=== PATIENT | male | born 1955 | race Hispanic/Latino ===

== ENCOUNTER 2020-10-03 17:31 | Inpatient (IN) | payer MEDICARE ==
[~2020-10-03] VITALS: Ht 182.9 cm; Wt 83.5 kg
[2020-10-03] MEDS ORDERED: Vancomycin IV 1 GM in SODIUM CHLORIDE 0.9% 250ML 250 ML IV STA (18:32)
[2020-10-03] MEDS ORDERED: CEFEPIME 2 GM in SODIUM CHLORIDE 0.9% 100 ML IV STA (18:32)
[2020-10-03 18:47] LABS: BASOPHILS % 0.3 % (0.0-1.0); EOSINOPHILS # (AUTO) 0.1 (0.0-0.4); EOSINOPHILS % 1.4 % (0.0-6.0); HEMATOCRIT 31.1 % (38.2-49.6); HEMOGLOBIN 10.1 g/dL (14.0-18.0); LYMPHOCYTES # (AUTO) 0.9 (1.0-3.2); LYMPHOCYTES % 11.7 % (18.0-39.1); MEAN CORPUSCULAR HEMOGLOBIN 30.5 pg (28-32); MEAN CORPUSCULAR HGB CONC 32.5 g/dL (31-35); MONOCYTES # (AUTO) 0.6 (0.2-0.8); MONOCYTES % 8.3 % (4.4-11.3); NEUTROPHILS # (AUTO) 5.7 (2.1-6.9); PLATELET COUNT 249 x10e3/uL (140-360); RED BLOOD COUNT 3.31 x10e6/uL (4.3-5.7); RED CELL DISTRIBUTION WIDTH 14.7 % (11.7-14.4)
[2020-10-03 19:03] LABS: ALBUMIN 2.9 g/dL (3.5-5.0); ALBUMIN/GLOBULIN RATIO 0.7 (0.8-2.0); ANION GAP 12.8 mmol/L (8-16); CALCIUM 8.1 mg/dL (8.4-10.2); CREATININE, SERUM 0.82 mg/dL (0.72-1.25); POTASSIUM 4.8 mmol/L (3.5-5.1)
[2020-10-03] MEDS ORDERED: SODIUM CHLORIDE 0.9% 250ML 250 ML ONE (19:39)
[2020-10-04] MEDS ORDERED: HYDRALAZINE HCL 20 MG/ML VIAL IV PRN (02:30)
[2020-10-04] MEDS ORDERED: ONDANSETRON HCL INJ 2MG/ML 2ML 2 MG/ML VIAL IV PRN (02:30)
[2020-10-04] MEDS ORDERED: DEXTROSE 50% SYRINGE 50 ML IV PRN (02:30)
[2020-10-04] MEDS ORDERED: MAGNESIUM HYDROXIDE 30 ML UDC PO PRN (02:45)
[2020-10-04] MEDS ORDERED: MORPHINE SULFATE INJ 4 MG/ML INJ 1ML ONE (03:00)
[2020-10-04] MEDS ORDERED: ONDANSETRON HCL INJ 2MG/ML 2ML 2 MG/ML VIAL IV STA (03:14)
[2020-10-04] MEDS ORDERED: MORPHINE SULFATE INJ 4 MG/ML INJ 1ML IV PRN (03:15)
[2020-10-04] MEDS: CEFEPIME 1 GM in SODIUM CHLORIDE 0.9% 50ML 50 ML IV SCH ×3 (06:22→22:14)
[2020-10-04 06:57] LABS: BASOPHILS % 0.6 % (0.0-1.0); EOSINOPHILS # (AUTO) 0.2 (0.0-0.4); EOSINOPHILS % 2.4 % (0.0-6.0); HEMATOCRIT 32.9 % (38.2-49.6); HEMOGLOBIN 10.6 g/dL (14.0-18.0); LYMPHOCYTES # (AUTO) 1.1 (1.0-3.2); LYMPHOCYTES % 16.4 % (18.0-39.1); MEAN CORPUSCULAR HEMOGLOBIN 30.4 pg (28-32); MEAN CORPUSCULAR HGB CONC 32.2 g/dL (31-35); MEAN CORPUSCULAR VOLUME 94.3 fL (81-99); MONOCYTES # (AUTO) 0.6 (0.2-0.8); MONOCYTES % 8.4 % (4.4-11.3); NEUTROPHILS # (AUTO) 4.8 (2.1-6.9); NEUTROPHILS % 71.7 % (38.7-80.0); PLATELET COUNT 273 x10e3/uL (140-360); RED BLOOD COUNT 3.49 x10e6/uL (4.3-5.7); RED CELL DISTRIBUTION WIDTH 14.8 % (11.7-14.4)
[2020-10-04] MEDS ORDERED: VANCOMYCIN HCL 1GM/NS 250 ML BAG IV SCH (07:00)
[2020-10-04] MEDS ORDERED: Vancomycin IV 1 GM in SODIUM CHLORIDE 0.9% 250ML 250 ML IV SCH (07:00)
[2020-10-04 07:20] LABS: ALBUMIN 2.8 g/dL (3.5-5.0); ALBUMIN/GLOBULIN RATIO 0.7 (0.8-2.0); CALCIUM 8.3 mg/dL (8.4-10.2); CREATININE, SERUM 0.7 mg/dL (0.72-1.25)
[2020-10-04] MEDS: INSULIN REGULAR, HUMAN 100 UNIT/1 ML SQ SCH ×4 (07:30→20:41)
[2020-10-04] MEDS: MULTIVITAMINS/MINERALS TAB PO SCH (10:57)
[2020-10-04] MEDS: ENOXAPARIN SOD INJ 40 MG/0.4 ML SYR SC SCH (12:04)
[2020-10-04] MEDS: ACETAMINOPHEN/CODEINE 300MG - 30MG TAB PO PRN ×2 (14:34→20:30)
[2020-10-04 15:12] VITALS: BP 170/71
[2020-10-04 20:00] VITALS: BP 172/71
[2020-10-04 20:12] VITALS: BP 172/71
[2020-10-04] MEDS ORDERED: SODIUM CHLORIDE 0.9% 250ML 250 ML ONE (20:36)
[2020-10-04] MEDS: POVIDONE IODINE 30 GM TUBE TOP SCH (20:41)
[2020-10-04] MEDS: MUPIROCIN 2% OINT 22 GM TUBE TOP SCH (20:41)
[2020-10-04] MEDS ORDERED: NOVOLOG100 UNIT/1 SC (20:46)
[2020-10-04] MEDS ORDERED: POTASSIUM CHLO10 ME1 PO (20:46)
[2020-10-04] MEDS ORDERED: GABAPENTIN400 MG PO (20:46)
[2020-10-04] MEDS ORDERED: POTASSIUM CITR10 MEQ PO (20:46)
[2020-10-04] MEDS ORDERED: FLUOXETINE HCL20 MG PO (20:46)
[2020-10-04] MEDS ORDERED: FUROSEMIDE20 MG PO (20:46)
[2020-10-04] MEDS ORDERED: K-DUR10 MEQ PO (20:46)
[2020-10-04 21:00] VITALS: BP 172/71
[2020-10-04] MEDS: GABAPENTIN 400 MG CAP PO SCH (22:14)
[2020-10-04] MEDS ORDERED: LISINOPRIL10 MG PO (22:16)
[2020-10-04] MEDS: Vancomycin IV 1 GM in SODIUM CHLORIDE 0.9% 250ML 250 ML IV SCH (22:43)
[2020-10-05] VITALS (7 sets, daily range): BP systolic 132–158; BP diastolic 66–79
[2020-10-05] MEDS: HYDROCODONE/APAP 5MG-325MG TAB PO PRN ×3 (06:35→21:13)
[2020-10-05] MEDS: CEFEPIME 1 GM in SODIUM CHLORIDE 0.9% 50ML 50 ML IV SCH ×3 (06:35→22:50)
[2020-10-05] MEDS: INSULIN REGULAR, HUMAN 100 UNIT/1 ML SQ SCH ×4 (07:30→21:00)
[2020-10-05] MEDS ORDERED: LISINOPRIL 10 MG TAB PO SCH (09:00)
[2020-10-05] MEDS: MULTIVITAMINS/MINERALS TAB PO SCH (09:18)
[2020-10-05] MEDS: MUPIROCIN 2% OINT 22 GM TUBE TOP SCH (09:18)
[2020-10-05] MEDS: GABAPENTIN 400 MG CAP PO SCH ×3 (09:18→21:00)
[2020-10-05] MEDS: POVIDONE IODINE 30 GM TUBE TOP SCH (09:18)
[2020-10-05] MEDS: AMLODIPINE BESYLATE 5 MG TAB PO SCH (09:18)
[2020-10-05] MEDS: FLUOXETINE HCL 20 MG CAP PO SCH (09:18)
[2020-10-05] MEDS: Vancomycin IV 1 GM in SODIUM CHLORIDE 0.9% 250ML 250 ML IV SCH ×2 (13:01→23:24)
[2020-10-05] MEDS: ENOXAPARIN SOD INJ 40 MG/0.4 ML SYR SC SCH (17:08)
[2020-10-05] MEDS ORDERED: POTASSIUM CHLORIDE 20 MEQ TAB CR PO STA (20:11)
[2020-10-05] MEDS: FUROSEMIDE INJ 10 MG/ML 4 ML VIAL IV SCH (21:00)
[2020-10-06] VITALS (8 sets, daily range): BP systolic 108–163; BP diastolic 56–73
[2020-10-06] MEDS: HYDROCODONE/APAP 5MG-325MG TAB PO PRN ×3 (04:54→18:18)
[2020-10-06] MEDS: CEFEPIME 1 GM in SODIUM CHLORIDE 0.9% 50ML 50 ML IV SCH ×3 (06:13→22:05)
[2020-10-06] MEDS: FUROSEMIDE INJ 10 MG/ML 4 ML VIAL IV SCH ×2 (09:04→21:33)
[2020-10-06] MEDS: AMLODIPINE BESYLATE 5 MG TAB PO SCH (09:05)
[2020-10-06] MEDS: GABAPENTIN 400 MG CAP PO SCH ×3 (09:05→21:22)
[2020-10-06] MEDS: MULTIVITAMINS/MINERALS TAB PO SCH (09:05)
[2020-10-06] MEDS: FLUOXETINE HCL 20 MG CAP PO SCH (09:06)
[2020-10-06] MEDS: MUPIROCIN 2% OINT 22 GM TUBE TOP SCH (09:06)
[2020-10-06] MEDS: LISINOPRIL 10 MG TAB PO SCH (09:06)
[2020-10-06] MEDS: POVIDONE IODINE 30 GM TUBE TOP SCH (09:06)
[2020-10-06] MEDS: INSULIN REGULAR, HUMAN 100 UNIT/1 ML SQ SCH ×4 (11:30→21:00)
[2020-10-06] MEDS: Vancomycin IV 1 GM in SODIUM CHLORIDE 0.9% 250ML 250 ML IV SCH ×2 (12:08→23:00)
[2020-10-06] MEDS: ENOXAPARIN SOD INJ 40 MG/0.4 ML SYR SC SCH (16:47)
[2020-10-07] VITALS (8 sets, daily range): BP systolic 141–164; BP diastolic 61–78
[2020-10-07 05:23] LABS: EOSINOPHILS # (AUTO) 0.1 (0.0-0.4); EOSINOPHILS % 2.8 % (0.0-6.0); HEMATOCRIT 30.5 % (38.2-49.6); HEMOGLOBIN 10.2 g/dL (14.0-18.0); LYMPHOCYTES # (AUTO) 0.8 (1.0-3.2); LYMPHOCYTES % 20.7 % (18.0-39.1); MEAN CORPUSCULAR HEMOGLOBIN 30.7 pg (28-32); MEAN CORPUSCULAR HGB CONC 33.4 g/dL (31-35); MEAN CORPUSCULAR VOLUME 91.9 fL (81-99); MONOCYTES # (AUTO) 0.5 (0.2-0.8); MONOCYTES % 12.4 % (4.4-11.3); NEUTROPHILS # (AUTO) 2.4 (2.1-6.9); NEUTROPHILS % 62.8 % (38.7-80.0); PLATELET COUNT 279 x10e3/uL (140-360); RED BLOOD COUNT 3.32 x10e6/uL (4.3-5.7); RED CELL DISTRIBUTION WIDTH 14.4 % (11.7-14.4)
[2020-10-07 05:47] LABS: ALBUMIN 2.5 g/dL (3.5-5.0); ALBUMIN/GLOBULIN RATIO 0.7 (0.8-2.0); ANION GAP 13.6 mmol/L (8-16); CALCIUM 8.5 mg/dL (8.4-10.2); CHOL/HDL RATIO 3.4 (3.9-4.7); CREATININE, SERUM 0.8 mg/dL (0.72-1.25); MAGNESIUM 1.6 MG/DL (1.3-2.1); POTASSIUM 3.6 mmol/L (3.5-5.1)
[2020-10-07] MEDS: CEFEPIME 1 GM in SODIUM CHLORIDE 0.9% 50ML 50 ML IV SCH ×3 (06:24→22:06)
[2020-10-07] MEDS: INSULIN REGULAR, HUMAN 100 UNIT/1 ML SQ SCH ×4 (07:30→22:05)
[2020-10-07] MEDS: FLUOXETINE HCL 20 MG CAP PO SCH (09:00)
[2020-10-07] MEDS: AMLODIPINE BESYLATE 5 MG TAB PO SCH (09:00)
[2020-10-07] MEDS: POVIDONE IODINE 30 GM TUBE TOP SCH (09:00)
[2020-10-07] MEDS: LISINOPRIL 10 MG TAB PO SCH (09:00)
[2020-10-07] MEDS: MULTIVITAMINS/MINERALS TAB PO SCH (09:00)
[2020-10-07] MEDS: GABAPENTIN 400 MG CAP PO SCH ×3 (09:00→22:04)
[2020-10-07] MEDS: MUPIROCIN 2% OINT 22 GM TUBE TOP SCH (09:00)
[2020-10-07] MEDS: FUROSEMIDE INJ 10 MG/ML 4 ML VIAL IV SCH ×2 (09:00→22:04)
[2020-10-07] MEDS: Vancomycin IV 1 GM in SODIUM CHLORIDE 0.9% 250ML 250 ML IV SCH ×2 (11:10→23:08)
[2020-10-07] MEDS ORDERED: HEPARIN SOD (PORCINE) 1000 UNIT/ML 30ML ONE ×2 (14:58→15:47)
[2020-10-07] MEDS ORDERED: MIDAZOLAM HCL 2 MG/2 ML VIAL ONE ×2 (14:58→16:11)
[2020-10-07] MEDS ORDERED: FENTANYL CITRATE/PF 100MCG/2 ML INJ ONE (14:58)
[2020-10-07] MEDS ORDERED: IOPAMIDOL 300MG/ML 100 ML INFUS..BTL IV ONE (14:59)
[2020-10-07] MEDS ORDERED: LIDOCAINE HCL 2% LOCAL 20 ML VIAL ONE (14:59)
[2020-10-07] MEDS ORDERED: HEPARIN SOD/SOD CHLORIDE 2,000 ML ONE (14:59)
[2020-10-07] MEDS ORDERED: NITROGLYCERIN/D5W 200 MCG/ML 250 ML ONE (14:59)
[2020-10-07] MEDS ORDERED: SODIUM CHLORIDE 0.9% 1000ML 1,000 ML ONE ×2 (14:59→15:47)
[2020-10-07] MEDS ORDERED: VERAPAMIL HCL 2.5 MG/ML 2 ML VIAL ONE (15:47)
[2020-10-07] MEDS ORDERED: ASPIRIN 325 MG TAB ONE (16:02)
[2020-10-07] MEDS ORDERED: CLOPIDOGREL BISULFATE 75 MG TAB ONE (16:02)
[2020-10-07] MEDS: ENOXAPARIN SOD INJ 40 MG/0.4 ML SYR SC SCH (17:00)
[2020-10-07] MEDS: HYDROCODONE/APAP 5MG-325MG TAB PO PRN (18:10)
[2020-10-07] MEDS: ACETAMINOPHEN 325 MG TAB PO PRN (22:20)
[2020-10-08 04:00] VITALS: BP 140/66
[2020-10-08] MEDS: CEFEPIME 1 GM in SODIUM CHLORIDE 0.9% 50ML 50 ML IV SCH ×3 (05:38→21:08)
[2020-10-08] MEDS: HYDROCODONE/APAP 5MG-325MG TAB PO PRN ×4 (05:45→23:54)
[2020-10-08] MEDS: INSULIN REGULAR, HUMAN 100 UNIT/1 ML SQ SCH ×4 (07:30→21:06)
[2020-10-08 08:51] VITALS: BP 146/65
[2020-10-08] MEDS: LISINOPRIL 10 MG TAB PO SCH (09:00)
[2020-10-08] MEDS: GABAPENTIN 400 MG CAP PO SCH ×3 (09:00→21:08)
[2020-10-08] MEDS: AMLODIPINE BESYLATE 5 MG TAB PO SCH (09:00)
[2020-10-08] MEDS: FUROSEMIDE INJ 10 MG/ML 4 ML VIAL IV SCH ×2 (09:00→21:07)
[2020-10-08] MEDS: FLUOXETINE HCL 20 MG CAP PO SCH (09:00)
[2020-10-08] MEDS: MULTIVITAMINS/MINERALS TAB PO SCH (09:00)
[2020-10-08] MEDS: Vancomycin IV 1 GM in SODIUM CHLORIDE 0.9% 250ML 250 ML IV SCH ×2 (11:00→23:46)
[2020-10-08] MEDS: POVIDONE IODINE 30 GM TUBE TOP SCH (12:00)
[2020-10-08] MEDS: MUPIROCIN 2% OINT 22 GM TUBE TOP SCH (12:00)
[2020-10-08 12:54] LABS: BASOPHILS % 0.8 % (0.0-1.0); EOSINOPHILS # (AUTO) 0.1 (0.0-0.4); EOSINOPHILS % 1.6 % (0.0-6.0); HEMATOCRIT 31.9 % (38.2-49.6); HEMOGLOBIN 10.5 g/dL (14.0-18.0); LYMPHOCYTES # (AUTO) 0.8 (1.0-3.2); LYMPHOCYTES % 14.9 % (18.0-39.1); MEAN CORPUSCULAR HEMOGLOBIN 30.5 pg (28-32); MEAN CORPUSCULAR HGB CONC 32.9 g/dL (31-35); MEAN CORPUSCULAR VOLUME 92.7 fL (81-99); MONOCYTES # (AUTO) 0.4 (0.2-0.8); MONOCYTES % 8.2 % (4.4-11.3); NEUTROPHILS # (AUTO) 3.7 (2.1-6.9); NEUTROPHILS % 74.1 % (38.7-80.0); PLATELET COUNT 305 x10e3/uL (140-360); RED BLOOD COUNT 3.44 x10e6/uL (4.3-5.7); RED CELL DISTRIBUTION WIDTH 14.6 % (11.7-14.4)
[2020-10-08 13:10] LABS: ANION GAP 12.8 mmol/L (8-16); CALCIUM 8.6 mg/dL (8.4-10.2); CREATININE, SERUM 0.81 mg/dL (0.72-1.25); POTASSIUM 3.8 mmol/L (3.5-5.1)
[2020-10-08 16:14] VITALS: BP 127/59
[2020-10-08] MEDS: ASPIRIN 81 MG CHEW TAB PO SCH (17:00)
[2020-10-08] MEDS: ENOXAPARIN SOD INJ 40 MG/0.4 ML SYR SC SCH (17:21)
[2020-10-08] MEDS: CLOPIDOGREL BISULFATE 75 MG TAB PO SCH (18:05)
[2020-10-08 20:00] VITALS: BP 145/70
[2020-10-08 21:00] VITALS: BP 145/70
[2020-10-08] MEDS: ATORVASTATIN 20 MG TAB PO SCH (21:08)
[2020-10-09] VITALS (9 sets, daily range): BP systolic 101–145; BP diastolic 57–72
[2020-10-09] MEDS: CEFEPIME 1 GM in SODIUM CHLORIDE 0.9% 50ML 50 ML IV SCH ×3 (06:34→22:15)
[2020-10-09] MEDS: FUROSEMIDE INJ 10 MG/ML 4 ML VIAL IV SCH ×2 (09:28→20:40)
[2020-10-09] MEDS: MULTIVITAMINS/MINERALS TAB PO SCH (09:28)
[2020-10-09] MEDS: ASPIRIN 81 MG CHEW TAB PO SCH (09:28)
[2020-10-09] MEDS: AMLODIPINE BESYLATE 5 MG TAB PO SCH (09:29)
[2020-10-09] MEDS: CLOPIDOGREL BISULFATE 75 MG TAB PO SCH (09:29)
[2020-10-09] MEDS: GABAPENTIN 400 MG CAP PO SCH ×3 (09:29→20:40)
[2020-10-09] MEDS: MUPIROCIN 2% OINT 22 GM TUBE TOP SCH (09:30)
[2020-10-09] MEDS: FLUOXETINE HCL 20 MG CAP PO SCH (09:30)
[2020-10-09] MEDS: LISINOPRIL 10 MG TAB PO SCH (09:30)
[2020-10-09] MEDS: POVIDONE IODINE 30 GM TUBE TOP SCH (09:31)
[2020-10-09] MEDS: HYDROCODONE/APAP 5MG-325MG TAB PO PRN ×3 (09:31→20:40)
[2020-10-09] MEDS: Vancomycin IV 1 GM in SODIUM CHLORIDE 0.9% 250ML 250 ML IV SCH ×2 (10:49→23:35)
[2020-10-09] MEDS: INSULIN REGULAR, HUMAN 100 UNIT/1 ML SQ SCH ×4 (10:57→20:40)
[2020-10-09] MEDS: ENOXAPARIN SOD INJ 40 MG/0.4 ML SYR SC SCH (17:09)
[2020-10-09] MEDS: ATORVASTATIN 20 MG TAB PO SCH (20:40)
[2020-10-10] VITALS (9 sets, daily range): BP systolic 108–153; BP diastolic 56–72
[2020-10-10] MEDS: CEFEPIME 1 GM in SODIUM CHLORIDE 0.9% 50ML 50 ML IV SCH ×3 (05:35→21:05)
[2020-10-10] MEDS: MULTIVITAMINS/MINERALS TAB PO SCH (08:55)
[2020-10-10] MEDS: FUROSEMIDE INJ 10 MG/ML 4 ML VIAL IV SCH (08:55)
[2020-10-10] MEDS: GABAPENTIN 400 MG CAP PO SCH ×3 (08:55→21:05)
[2020-10-10] MEDS: ASPIRIN 81 MG CHEW TAB PO SCH (08:55)
[2020-10-10] MEDS: CLOPIDOGREL BISULFATE 75 MG TAB PO SCH (08:55)
[2020-10-10] MEDS: FLUOXETINE HCL 20 MG CAP PO SCH (08:56)
[2020-10-10] MEDS: POVIDONE IODINE 30 GM TUBE TOP SCH (08:56)
[2020-10-10] MEDS: LISINOPRIL 10 MG TAB PO SCH (08:56)
[2020-10-10] MEDS: MUPIROCIN 2% OINT 22 GM TUBE TOP SCH (08:57)
[2020-10-10] MEDS: AMLODIPINE BESYLATE 5 MG TAB PO SCH (08:59)
[2020-10-10] MEDS: INSULIN REGULAR, HUMAN 100 UNIT/1 ML SQ SCH ×4 (09:03→21:05)
[2020-10-10] MEDS: HYDROCODONE/APAP 5MG-325MG TAB PO PRN ×2 (09:06→22:39)
[2020-10-10] MEDS ORDERED: AMLODIPINE BESYLATE 5 MG TAB PO ONE (10:45)
[2020-10-10] MEDS: Vancomycin IV 1 GM in SODIUM CHLORIDE 0.9% 250ML 250 ML IV SCH ×2 (10:59→22:07)
[2020-10-10] MEDS: ENOXAPARIN SOD INJ 40 MG/0.4 ML SYR SC SCH (17:31)
[2020-10-10 18:50] LABS: BASOPHILS # (AUTO) 0.1 (0.0-0.1); BASOPHILS % 1.1 % (0.0-1.0); EOSINOPHILS # (AUTO) 0.2 (0.0-0.4); EOSINOPHILS % 2.5 % (0.0-6.0); HEMATOCRIT 30.2 % (38.2-49.6); HEMOGLOBIN 9.8 g/dL (14.0-18.0); LYMPHOCYTES % 15.8 % (18.0-39.1); MEAN CORPUSCULAR HEMOGLOBIN 30.6 pg (28-32); MEAN CORPUSCULAR HGB CONC 32.5 g/dL (31-35); MEAN CORPUSCULAR VOLUME 94.4 fL (81-99); MONOCYTES # (AUTO) 0.6 (0.2-0.8); MONOCYTES % 9.1 % (4.4-11.3); NEUTROPHILS # (AUTO) 4.6 (2.1-6.9); NEUTROPHILS % 71.2 % (38.7-80.0); PLATELET COUNT 246 x10e3/uL (140-360); RED CELL DISTRIBUTION WIDTH 14.5 % (11.7-14.4)
[2020-10-10 19:10] LABS: ANION GAP 13.6 mmol/L (8-16); CALCIUM 8.4 mg/dL (8.4-10.2); CREATININE, SERUM 1.03 mg/dL (0.72-1.25); POTASSIUM 3.6 mmol/L (3.5-5.1)
[2020-10-10 19:15] LABS: ALBUMIN/GLOBULIN RATIO 0.9 (0.8-2.0)
[2020-10-10 19:22] LABS: MAGNESIUM 1.6 MG/DL (1.3-2.1); PHOSPHORUS 2.5 MG/DL (2.3-4.7)
[2020-10-10] MEDS: ATORVASTATIN 20 MG TAB PO SCH (21:05)
[2020-10-11] VITALS (9 sets, daily range): BP systolic 129–145; BP diastolic 53–72
[2020-10-11] MEDS: CEFEPIME 1 GM in SODIUM CHLORIDE 0.9% 50ML 50 ML IV SCH ×3 (05:36→21:39)
[2020-10-11] MEDS: HYDROCODONE/APAP 5MG-325MG TAB PO PRN ×3 (09:00→17:05)
[2020-10-11] MEDS: ASPIRIN 81 MG CHEW TAB PO SCH (09:15)
[2020-10-11] MEDS: AMLODIPINE BESYLATE 10 MG TAB PO SCH (09:16)
[2020-10-11] MEDS: FUROSEMIDE 20 MG TAB PO SCH (09:16)
[2020-10-11] MEDS: GABAPENTIN 400 MG CAP PO SCH ×3 (09:16→20:45)
[2020-10-11] MEDS: MULTIVITAMINS/MINERALS TAB PO SCH (09:16)
[2020-10-11] MEDS: CLOPIDOGREL BISULFATE 75 MG TAB PO SCH (09:17)
[2020-10-11] MEDS: MUPIROCIN 2% OINT 22 GM TUBE TOP SCH (09:17)
[2020-10-11] MEDS: LISINOPRIL 10 MG TAB PO SCH (09:17)
[2020-10-11] MEDS: POVIDONE IODINE 30 GM TUBE TOP SCH (09:17)
[2020-10-11] MEDS: FLUOXETINE HCL 20 MG CAP PO SCH (09:17)
[2020-10-11] MEDS: INSULIN REGULAR, HUMAN 100 UNIT/1 ML SQ SCH ×4 (09:20→20:45)
[2020-10-11] MEDS: Vancomycin IV 1 GM in SODIUM CHLORIDE 0.9% 250ML 250 ML IV SCH (11:52)
[2020-10-11] MEDS: ATORVASTATIN 20 MG TAB PO SCH (20:45)
[2020-10-11] MEDS: ACETAMINOPHEN 325 MG TAB PO PRN (23:08)
[2020-10-12] VITALS (9 sets, daily range): BP systolic 121–155; BP diastolic 54–76
[2020-10-12] MEDS: CEFEPIME 1 GM in SODIUM CHLORIDE 0.9% 50ML 50 ML IV SCH ×3 (05:20→22:25)
[2020-10-12] MEDS: HYDROCODONE/APAP 5MG-325MG TAB PO PRN ×2 (05:43→20:23)
[2020-10-12] MEDS: FLUOXETINE HCL 20 MG CAP PO SCH (09:27)
[2020-10-12] MEDS: FUROSEMIDE 20 MG TAB PO SCH (09:28)
[2020-10-12] MEDS: CLOPIDOGREL BISULFATE 75 MG TAB PO SCH (09:28)
[2020-10-12] MEDS: GABAPENTIN 400 MG CAP PO SCH ×3 (09:28→20:43)
[2020-10-12] MEDS: LISINOPRIL 10 MG TAB PO SCH (09:28)
[2020-10-12] MEDS: AMLODIPINE BESYLATE 10 MG TAB PO SCH (09:28)
[2020-10-12] MEDS: MULTIVITAMINS/MINERALS TAB PO SCH (09:28)
[2020-10-12] MEDS: ASPIRIN 81 MG CHEW TAB PO SCH (09:28)
[2020-10-12] MEDS: POVIDONE IODINE 30 GM TUBE TOP SCH (09:28)
[2020-10-12] MEDS: INSULIN REGULAR, HUMAN 100 UNIT/1 ML SQ SCH ×4 (09:34→20:43)
[2020-10-12 11:59] LABS: INR 1.04; PROTHROMBIN TIME 13.8 seconds (11.9-14.5)
[2020-10-12 12:01] LABS: PARTIAL THROMBOPLASTIN TIME 56.6 seconds (23.8-35.5)
[2020-10-12] MEDS: ATORVASTATIN 20 MG TAB PO SCH (20:43)
[2020-10-12] MEDS ORDERED: SODIUM CHLORIDE 0.9% 250ML 250 ML ONE (22:29)
[2020-10-13 00:05] VITALS: BP 129/73
[2020-10-13] MEDS: HYDROCODONE/APAP 5MG-325MG TAB PO PRN ×3 (02:57→14:15)
[2020-10-13 04:00] VITALS: BP 117/58
[2020-10-13] MEDS: CEFEPIME 1 GM in SODIUM CHLORIDE 0.9% 50ML 50 ML IV SCH ×2 (06:35→14:11)
[2020-10-13] MEDS: INSULIN REGULAR, HUMAN 100 UNIT/1 ML SQ SCH ×3 (07:30→16:30)
[2020-10-13 08:00] VITALS: BP 128/53
[2020-10-13 08:39] VITALS: BP 128/53
[2020-10-13] MEDS: GABAPENTIN 400 MG CAP PO SCH ×2 (08:49→15:00)
[2020-10-13] MEDS: CLOPIDOGREL BISULFATE 75 MG TAB PO SCH (08:49)
[2020-10-13] MEDS: FUROSEMIDE 20 MG TAB PO SCH (08:49)
[2020-10-13] MEDS: AMLODIPINE BESYLATE 10 MG TAB PO SCH (08:49)
[2020-10-13] MEDS: ASPIRIN 81 MG CHEW TAB PO SCH (08:49)
[2020-10-13] MEDS: MULTIVITAMINS/MINERALS TAB PO SCH (08:49)
[2020-10-13] MEDS: LISINOPRIL 10 MG TAB PO SCH (08:50)
[2020-10-13] MEDS: FLUOXETINE HCL 20 MG CAP PO SCH (08:50)
[2020-10-13] MEDS: POVIDONE IODINE 30 GM TUBE TOP SCH (08:51)
[2020-10-13 12:00] VITALS: BP 140/64
[2020-10-13] MEDS ORDERED: ASPIRIN CHEW81 MG PO (14:43)
[2020-10-13] MEDS ORDERED: PLAVIX75 MG PO (14:43)
[2020-10-13] MEDS ORDERED: NORVASC10 MG PO (14:43)
[2020-10-13] MEDS ORDERED: LISINOPRIL10 MG PO (14:43)
[2020-10-13] MEDS ORDERED: DOXYCYCLINE HY100 MG PO (14:46)
[2020-10-13 16:00] VITALS: BP 114/69
[2020-10-13] MEDS ORDERED: ONDANSETRON HCL 4 MG ORAL DISINTEGRATING TAB PO PRN (16:00)
[2020-10-13] MEDS ORDERED: MUPIROCIN 2% OINT 22 GM TUBE TOP ONE (16:15)
== END 2020-10-13 18:17 | disposition home or self-care (01) | DRG 270 ==
LOC: ER 18:31 → ERHOLD 18:46 → MED/SURG3 10-04 14:59
PROVIDERS: ADMIT Internal Medicine; ATTEND Internal Medicine
PROC: 047M3ZZ Dilation of Right Popliteal Artery, Percutaneous Approach (ICD-10-PCS; principal; 2020-10-07)
PROC: 04CM3ZZ Extirpation of Matter from Right Popliteal Artery, Percutaneous Approach (ICD-10-PCS; 2020-10-07)
PROC: 047Q341 Dilation of Left Anterior Tibial Artery with Drug-eluting Intraluminal Device, using Drug-Coated Balloon, Percutaneous Approach (ICD-10-PCS; 2020-10-07)
PROC: 04CQ3ZZ Extirpation of Matter from Left Anterior Tibial Artery, Percutaneous Approach (ICD-10-PCS; 2020-10-07)
DX: E11.51 Type 2 diabetes mellitus with diabetic peripheral angiopathy without gangrene (principal); J18.9 Pneumonia, unspecified organism; D66 Hereditary factor VIII deficiency; I63.9 Cerebral infarction, unspecified; M62.82 Rhabdomyolysis; E87.1 Hypo-osmolality and hyponatremia; L03.116 Cellulitis of left lower limb; E11.621 Type 2 diabetes mellitus with foot ulcer; I70.223 Atherosclerosis of native arteries of extremities with rest pain, bilateral legs; E88.09 Other disorders of plasma-protein metabolism, not elsewhere classified; E83.51 Hypocalcemia; Z87.891 Personal history of nicotine dependence; E11.42 Type 2 diabetes mellitus with diabetic polyneuropathy; Z20.822 Contact with and (suspected) exposure to COVID-19; E11.9 Type 2 diabetes mellitus without complications; G89.4 Chronic pain syndrome
CPT/HCPCS: 36247; 36415; 37229; 37246; 71045; 75625; 75716; 80048; 80053; 80061; 80202; 82550; 82553; 82948; 83036; 83605; 83735; 83880; 84100; 84484; 85025; 85240; 85347; 85384; 85610; 85651; 85730; 92928; 93005; 93306; 93925; 93971; 96361; 96372; 97139; 99152; 99153; 99251; 99284; C1724; C1725; C1760; C1769; C1874; C1887; J0692; J1644; J1650; J1817; J1940; J2001; J2250; J2270; J2405; J3010; J3370; J7030; J7050; J7799; Q9967; U0002

== ENCOUNTER 2020-12-07 11:33 | Emergency (ER) | payer MEDICARE ==
[~2020-12-07] VITALS: Ht 182.9 cm; Wt 88.9 kg
[~2020-12-07 11:33] MED LIST: ASPIRIN CHEW81 MG PO; DOXYCYCLINE HY100 MG PO; FLUOXETINE HCL20 MG PO; FUROSEMIDE20 MG PO; GABAPENTIN400 MG PO; K-DUR10 MEQ PO; LISINOPRIL10 MG PO; NORVASC10 MG PO; NOVOLOG100 UNIT/1 SC; PLAVIX75 MG PO; POTASSIUM CHLO10 ME1 PO; POTASSIUM CITR10 MEQ PO
[2020-12-07 12:56] LABS: BASOPHILS % 0.5 % (0.0-1.0); EOSINOPHILS # (AUTO) 0.1 (0.0-0.4); EOSINOPHILS % 1.1 % (0.0-6.0); HEMATOCRIT 21.1 % (38.2-49.6); LYMPHOCYTES # (AUTO) 0.6 (1.0-3.2); LYMPHOCYTES % 11.2 % (18.0-39.1); MEAN CORPUSCULAR HEMOGLOBIN 29.6 pg (28-32); MEAN CORPUSCULAR HGB CONC 31.3 g/dL (31-35); MEAN CORPUSCULAR VOLUME 94.6 fL (81-99); MONOCYTES # (AUTO) 0.3 (0.2-0.8); MONOCYTES % 4.9 % (4.4-11.3); NEUTROPHILS # (AUTO) 4.6 (2.1-6.9); NEUTROPHILS % 82.1 % (38.7-80.0); PLATELET COUNT 180 x10e3/uL (140-360); RED BLOOD COUNT 2.23 x10e6/uL (4.3-5.7); RED CELL DISTRIBUTION WIDTH 13.9 % (11.7-14.4)
[2020-12-07 13:05] LABS: HEMOGLOBIN 6.6 g/dL (14.0-18.0)
[2020-12-07 13:07] LABS: INR 1.07; PROTHROMBIN TIME 14.3 seconds (11.9-14.5)
[2020-12-07 13:08] LABS: PARTIAL THROMBOPLASTIN TIME 56.9 seconds (23.8-35.5)
[2020-12-07 13:19] LABS: ALBUMIN 3.1 g/dL (3.5-5.0); ALBUMIN/GLOBULIN RATIO 1.1 (0.8-2.0); ANION GAP 12.2 mmol/L (8-16); CALCIUM 8.3 mg/dL (8.4-10.2); CREATININE, SERUM 0.71 mg/dL (0.72-1.25); POTASSIUM 4.2 mmol/L (3.5-5.1)
[2020-12-07 13:37] LABS: CREATINE KINASE MB 7.8 ng/mL (0-5.0)
[2020-12-07] MEDS ORDERED: SODIUM CHLORIDE 0.9% 500ML 500 ML IV STA (14:43)
[2020-12-07 17:04] VITALS: BP 178/77
== END 2020-12-07 17:10 | disposition other institution (70) ==
LOC: ER 12:10
DX: D64.9 Anemia, unspecified (principal); D66 Hereditary factor VIII deficiency; E11.65 Type 2 diabetes mellitus with hyperglycemia; H54.62 Unqualified visual loss, left eye, normal vision right eye; I10 Essential (primary) hypertension; R94.31 Abnormal electrocardiogram [ECG] [EKG]
CPT/HCPCS: 36415; 80053; 82550; 82553; 84484; 85025; 85610; 85730; 86850; 86900; 86920; 93005; 99284; C9113; J7040; P9016

== ENCOUNTER 2021-02-26 13:22 | Emergency (ER) | payer MEDICARE ==
[~2021-02-26] VITALS: Ht 182.9 cm; Wt 88.9 kg
[2021-02-26 14:19] LABS: EOSINOPHILS % 0.2 % (0.0-6.0); HEMATOCRIT 37.1 % (38.2-49.6); LYMPHOCYTES # (AUTO) 0.7 (1.0-3.2); LYMPHOCYTES % 17.6 % (18.0-39.1); MEAN CORPUSCULAR HEMOGLOBIN 29.3 pg (28-32); MEAN CORPUSCULAR HGB CONC 32.3 g/dL (31-35); MEAN CORPUSCULAR VOLUME 90.7 fL (81-99); MONOCYTES # (AUTO) 0.2 (0.2-0.8); MONOCYTES % 5.4 % (4.4-11.3); NEUTROPHILS # (AUTO) 3.1 (2.1-6.9); NEUTROPHILS % 75.6 % (38.7-80.0); PLATELET COUNT 153 x10e3/uL (140-360); RED BLOOD COUNT 4.09 x10e6/uL (4.3-5.7); RED CELL DISTRIBUTION WIDTH 15.2 % (11.7-14.4)
[2021-02-26 14:30] LABS: ALBUMIN 3.8 g/dL (3.5-5.0); ALBUMIN/GLOBULIN RATIO 1.1 (0.8-2.0); ANION GAP 14.4 mmol/L (8-16); CALCIUM 9.1 mg/dL (8.4-10.2); CREATININE, SERUM 0.91 mg/dL (0.72-1.25); POTASSIUM 4.4 mmol/L (3.5-5.1)
[2021-02-26 15:27] LABS: CLARITY,URINE CLEAR (CLEAR); COLOR,URINE YELLOW (YELLOW); KETONES,URINE TRACE (NEGATIVE); LEUKOCYTE ESTERASE ,URINE NEGATIVE (NEGATIVE); NITRITE,URINE NEGATIVE (NEGATIVE); PROTEIN,URINE DIPSTICK 2+ (NEGATIVE); URINE UROBILINOGEN 1 mg/dL (0.2 - 1)
[2021-02-26 15:40] LABS: BACTERIA,URINE RARE /HPF; EPITHELIAL CELLS,URINE FEW /LPF
== END 2021-02-26 16:45 | disposition home or self-care (01) ==
LOC: ER 13:55
DX: E11.65 Type 2 diabetes mellitus with hyperglycemia (principal); R42 Dizziness and giddiness; D66 Hereditary factor VIII deficiency; I10 Essential (primary) hypertension; R94.31 Abnormal electrocardiogram [ECG] [EKG]
CPT/HCPCS: 36415; 70450; 80053; 81001; 84484; 85025; 93005; 99284